=== PATIENT | female | born 1995 | race African-American/Black ===

== ENCOUNTER 2022-03-21 07:27 | Emergency (ER) | payer OTHER ==
[~2022-03-21] VITALS: Ht 165.1 cm; Wt 160.0 kg
[2022-03-21 07:30] VITALS: BP 111/67
[2022-03-21] MEDS ORDERED: IBUP-1984 PO (08:56)
== END 2022-03-21 09:30 | disposition home or self-care (01) ==
LOC: ER 07:28
DX: S42.401A Unspecified fracture of lower end of right humerus, initial encounter for closed fracture (principal); S62.001A Unspecified fracture of navicular [scaphoid] bone of right wrist, initial encounter for closed fracture; V98.8XXA Other specified transport accidents, initial encounter; Y93.89 Activity, other specified; Y92.89 Other specified places as the place of occurrence of the external cause; Y99.8 Other external cause status
CPT/HCPCS: 73080; 73110; 73610; 99284